=== PATIENT | female | born 1950 | race Caucasian/White ===

== ENCOUNTER → 2025-06-20 | Outpatient (CLI) | payer MEDICARE, BC ==
[2025-06-20 10:26] LABS: African American GFR (CKD) >90 (>60 ml/min/1.73 sqM); Anion Gap 12 mmol/L; Blood Urea Nitrogen 10 mg/dL (7-17); Calcium 10.1 mg/dL (8.4-10.2); Carbon Dioxide 25 mmol/L (22-30); Chloride 103 mmol/L (98-107); Glucose 77 mg/dL (74-99); Non-African American GFR(CKD) >90 (>60 ml/min/1.73 sqM); Sodium 140 mmol/L (137-145)
[2025-06-20 10:28] LABS: Potassium 4.8 mmol/L (3.5-5.1)
--- NOTE | 2025-06-20 11:13 | CT ---
EXAMINATION TYPE: CT brain wo/w con DATE OF EXAM: 06/20/2025 10:55 AM COMPARISON: None. CLINICAL INDICATION: Female, 75 years old with history of R25.0 ABNORMAL HEAD MOVEMENTS, abnormal hea d movement TECHNIQUE:Unenhanced followed by contrast enhanced CT of the brain is submitted for evaluation. CT s can of the head is performed without and with IV Contrast, patient injected with 100 mL of Isovue [address] DLP: 2279 mGycm, Automated exposure control for dose reduction was used. FINDINGS: The ventricles are midline. There is no evidence for intracranial hemorrhage or extra-axial collecti on. No mass effects are identified. Right frontal craniotomy changes. Multifocal lucencies throughou t the calvarium may reflect underlying lesions. Consider bone scan for further evaluation. Changes of hyperostosis frontalis interna. Contrast is administered and no enhancing lesions are detected. No pathologic enhancement is identified. If symptoms persist consider MRI. IMPRESSION: Right frontal craniotomy changes. Multifocal lucencies throughout the calvarium may reflect underlyin g lesions. Consider bone scan for further evaluation. No enhancing intracranial lesions. [facility], , 06/20/2025 11:10 AM
== END | disposition home or self-care (01) ==
LOC: RADCTMAIN 09:02
PROVIDERS: ATTEND Nurse Practitioner Family
DX: E11.9 Type 2 diabetes mellitus without complications (principal); I10 Essential (primary) hypertension; R25.0 Abnormal head movements
CPT/HCPCS: 80048; 70470; 36415; Q9967